=== PATIENT | male | born 1955 | race Caucasian/White ===

== ENCOUNTER 2023-07-06 00:06 | Observation (INO) | payer MEDICARE ==
[2023-07-06 00:25] VITALS: BMI 27.3
[2023-07-06] MEDS ORDERED: Nitroglycerin 0.4 MG TAB (25 Tab Bottle) SL PRN (01:13)
[2023-07-06] MEDS ORDERED: TICAGRELOR 90 MG TABLET PO SCH ×2 (01:45→09:00)
[2023-07-06] MEDS ORDERED: Lisinopril 2.5 MG TAB PO SCH ×2 (01:45→21:00)
[2023-07-06] MEDS ORDERED: Atorvastatin Calcium 40 MG TAB PO SCH ×2 (01:45→21:00)
[2023-07-06 02:46] LABS: Troponin I Less than 0.010 ng/mL (< 0.028)
[2023-07-06 04:46] LABS: #Basophils 0.1 10x3/uL (0.0-0.2); #Eosinphils 0.2 10x3/uL (0.0-0.5); #Monocytes 0.8 10x3/uL (0.0-1.1); #Neutrophils 4.7 10x3/uL (1.5-8.4); %Basophils 0.6 % (0.0-2.0); %Eosinophils 2.2 % (0.0-6.0); %Lymphocytes 32.8 % (18.0-47.0); %Monocytes 9.4 % (0.0-10.0); %Neutrophils 54.7 % (40.0-75.0); Hematocrit 43.5 % (38.8-50.0); Hemoglobin 15.1 g/dL (13.5-17.5); Mean Corpuscular HGB CONC 34.7 g/dL (32.0-36.0); Mean Corpuscular Hemoglobin 31.7 pg (27.0-33.0); Mean Corpuscular Volume 91.4 fl (81.2-95.1); Mean Platelet Volume 10.9 fl (7.4-10.4); Platelet Count 182 10x3/uL (150-450); RBC Distribution Width 12.9 % (11.5-14.5); Red Blood Cell (RBC) Count 4.76 10x6/uL (4.32-5.72); White Blood Cell (WBC) Count 8.7 10x3/uL (3.5-10.5)
[2023-07-06 04:53] LABS: Anion Gap 13 mmol/L (10-20); BUN (Urea Nitrogen) 31 mg/dL (8.4-25.7); Calc. Creatinine Clearance 47 mL/min (70-130); Calcium 9.1 mg/dL (7.8-10.44); Carbon Dioxide 20 mmol/L (23-31); Chloride 107 mmol/L (98-107); Estimated GFR 42; Glucose 165 mg/dL (80-115); Lipase 146 U/L (8-78); Magnesium 1.9 mg/dL (1.6-2.6); Potassium 4.1 mmol/L (3.5-5.1); Sodium 136 mmol/L (136-145)
[2023-07-06 04:57] LABS: Cardiac Risk 2.9 (Less than 4.5); Cholesterol 113 mg/dl (< 200 Desired); HDL Cholesterol 39 mg/dL (>60 Neg Risk); LDL Cholesterol, Calculated 45 mg/dL; Triglycerides 146 mg/dL (Less than 150)
[2023-07-06 04:59] LABS: Troponin I 0.016 ng/mL (< 0.028)
[2023-07-06] MEDS: CO Q-10 CAPSULE 50 MG PO SCH (08:29)
[2023-07-06] MEDS ORDERED: Semaglutide [Ozempic] 0.25 MG/0.368 ML Pen.Injctr SC SCH (09:00)
[2023-07-06] MEDS ORDERED: Aspirin Chewable 81 MG TAB PO SCH (09:00)
[2023-07-06] MEDS ORDERED: Empagliflozin 10 MG TAB PO SCH (09:00)
[2023-07-06] MEDS ORDERED: Alogliptin 6.25 MG TAB PO SCH (09:00)
[2023-07-06 12:41] LABS: Uric Acid 8.4 mg/dL (3.5-7.2)
[2023-07-06 16:59] VITALS: BP 151/88; TEMP 97.8
== END 2023-07-06 18:55 | disposition home or self-care (01) ==
LOC: INTOOBSV 00:06 → CSHTELE 00:06
PROVIDERS: ADMIT Family Medicine; ATTEND Family Medicine
DX: R07.9 Chest pain, unspecified (principal); I73.9 Peripheral vascular disease, unspecified; E11.22 Type 2 diabetes mellitus with diabetic chronic kidney disease; I12.9 Hypertensive chronic kidney disease with stage 1 through stage 4 chronic kidney disease, or unspecified chronic kidney disease; N18.31 Chronic kidney disease, stage 3a; I25.10 Atherosclerotic heart disease of native coronary artery without angina pectoris; E78.5 Hyperlipidemia, unspecified; M10.9 Gout, unspecified; Z79.82 Long term (current) use of aspirin; Z95.5 Presence of coronary angioplasty implant and graft; Z79.899 Other long term (current) drug therapy
CPT/HCPCS: 36415; 36416; 80048; 80061; 83690; 83735; 84484; 84550; 85025; 93005; 93010; 93306; G0378